=== PATIENT | male | born 1980 | race Caucasian/White ===

== ENCOUNTER → 2021-12-13 | Day surgery (SDC) | payer OTHER ==
[~2021-12-13] MED LIST: BUPIVACAINE HC 0.75% PF 10ML VIAL INJ ONE; DEXAMETHASONE SOD PHOS INJ 4 MG/ML SDV ONE; FENTANYL CITRATE/PF 100MCG/2 ML INJ ONE; GLYCOPYRROLATE INJ 0.2 MG/ML VIAL ONE; KETOROLAC TROMETHAMINE 30 MG/ML VIAL ONE; LIDOCAINE 1% W/EPINEPHRINE 20 ML VIAL ONE; LIDOCAINE HCL 2% LOCAL INJ 5 ML SDV VIAL INJ ONE; LORATADINE-D 21 EACH PO; MIDAZOLAM HCL 2 MG/2 ML VIAL ONE; MULTIVITAMIN1 EACH PO; NEOSTIGMINE 1 MG/ML 10ML VIAL ONE; ONDANSETRON HCL INJ 2MG/ML 2ML 2 MG/ML VIAL ONE; POVIDONE IODINE 0.05% 0.05 % ML PO ONE; PROPOFOL IV EMULSION 10 MG/ML 20 ML VIAL ONE; ROCURONIUM BROMIDE 10 MG/ML 5ML VIAL IV ONE; SEVOFLURANE INHAL SOLN 250 ML PEN BTL ONE
[2021-12-13 13:25] VITALS: BP 127/91
== END | disposition home or self-care (01) ==
LOC: OR 07:37
PROVIDERS: ATTEND Surgery
DX: K43.9 Ventral hernia without obstruction or gangrene (principal); N28.1 Cyst of kidney, acquired; R00.1 Bradycardia, unspecified; Z20.822 Contact with and (suspected) exposure to COVID-19
CPT/HCPCS: 49560; 93005; C1713; J1100; J1885; J2001; J2250; J2405; J2704; J2710; J3010; U0002